=== PATIENT | male | born 2000 | race Caucasian/White ===

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

== ENCOUNTER 2022-06-16 13:15 | Emergency (ER) | payer BC, MEDICAID ==
[~2022-06-16] VITALS: Ht 180.3 cm; Wt 112.0 kg
[2022-06-16] MEDS ORDERED: NAPR220C14 PO (13:43)
[2022-06-16] MEDS ORDERED: ACET32TAB PO (13:43)
[2022-06-16] MEDS ORDERED: LIDO2SO SSP (15:56)
[2022-06-16] MEDS ORDERED: PENI500T PO (15:56)
[2022-06-16] MEDS ORDERED: IBUP-1022 PO (15:56)
[2022-06-16 16:14] VITALS: BP 148/76
== END 2022-06-16 16:15 | disposition home or self-care (01) ==
LOC: M ED 13:15
DX: K02.9 Dental caries, unspecified (principal); K04.6 Periapical abscess with sinus

== ENCOUNTER 2023-06-28 10:02 | Emergency (ER) | payer MEDICAID, OTHER ==
[~2023-06-28] VITALS: Ht 182.9 cm; Wt 113.5 kg
[~2023-06-28 10:02] MED LIST: ACET32TAB PO; IBUP-1022 PO; LIDO15SO9 SSP; NAPR220C14 PO; PENI500T PO
[2023-06-28 11:11] LABS: BASO % 0.7 % (0.0-1.0); EOS # 0.1 10^3/uL (0.0-0.5); EOS % 1.9 % (0.0-3.0); HEMATOCRIT 41.9 % (42.0-52.0); HEMOGLOBIN 14.5 g/dl (13.5-17.5); LYMPH # 1.9 10^3/uL (1.5-5.0); MEAN CORPUSCULAR HEMOGLOBIN 30.6 pg (27.0-33.0); MEAN CORPUSCULAR HGB CONC 34.6 g/dl (32.0-36.5); MEAN CORPUSCULAR VOLUME 88.4 fl (80.0-96.0); MONO # 0.4 10^3/uL (0.0-0.8); MONO % 7.3 % (2.0-8.0); NEUTROPHILS # 2.9 10^3/uL (1.5-8.5); NEUTROPHILS % 53.9 % (36.0-66.0); PLATELET COUNT, AUTOMATED 168 10^3/uL (150-450); RED BLOOD COUNT 4.74 10^6/uL (4.30-6.10); WHITE BLOOD COUNT 5.4 10^3/uL (4.0-10.0)
[2023-06-28 11:42] LABS: LIPASE 48 U/L (12-53)
[2023-06-28 11:45] LABS: ALBUMIN 4.2 G/DL (3.2-5.2); ALKALINE PHOSPHATASE 78 U/L (46-116); ALT/SGPT 192 U/L (7.0-40); AST/SGOT 104 U/L (<34); BILIRUBIN,DIRECT 0.2 MG/DL (<0.4); BILIRUBIN,TOTAL 0.3 MG/DL (0.3-1.2); BLOOD UREA NITROGEN 10 MG/DL (9-23); CALCIUM LEVEL 9.3 MG/DL (8.5-10.1); CARBON DIOXIDE LEVEL 29 MMOL/L (20-31); CHLORIDE LEVEL 110 MMOL/L (98-107); GLUCOSE, FASTING 93 MG/DL (60-100); POTASSIUM SERUM 3.7 MMOL/L (3.5-5.1); SODIUM LEVEL 143 MMOL/L (136-145); TOTAL PROTEIN 7.1 G/DL (5.7-8.2)
[2023-06-28] MEDS ORDERED: ISOVUE-370 76% 100ML VIAL As Ordered ONE (14:28)
[2023-06-28 15:00] VITALS: BP 144/81; TEMP 98.1; O2SAT 99
== END 2023-06-28 16:00 | disposition home or self-care (01) ==
LOC: M ED 11:51
DX: I88.0 Nonspecific mesenteric lymphadenitis (principal); K82.9 Disease of gallbladder, unspecified; K74.60 Unspecified cirrhosis of liver; F17.290 Nicotine dependence, other tobacco product, uncomplicated; F12.10 Cannabis abuse, uncomplicated; F10.10 Alcohol abuse, uncomplicated; Z79.1 Long term (current) use of non-steroidal anti-inflammatories (NSAID); Z79.899 Other long term (current) drug therapy; Z79.2 Long term (current) use of antibiotics
CPT/HCPCS: 36415; 74177; 80048; 80076; 83690; 85025; 99284; Q9967

== ENCOUNTER 2024-01-08 11:01 | Emergency (ER) | payer BC, OTHER ==
[2024-01-08 13:17] LABS: Trichomonas vaginalis (AMP) NOT DETECTED (NEGATIVE)
[2024-01-08 13:41] LABS: GC DNA AMPLIFICATION NEGATIVE (NEGATIVE)
[2024-01-08 14:53] LABS: BASO % 0.5 % (0.0-1.0); EOS # 0.2 10^3/uL (0.0-0.5); HEMATOCRIT 43.1 % (42.0-52.0); HEMOGLOBIN 14.7 g/dl (13.5-17.5); LYMPH # 2.3 10^3/uL (1.5-5.0); LYMPH % 30.4 % (24.0-44.0); MEAN CORPUSCULAR HEMOGLOBIN 30.6 pg (27.0-33.0); MEAN CORPUSCULAR HGB CONC 34.1 g/dl (32.0-36.5); MEAN CORPUSCULAR VOLUME 89.6 fl (80.0-96.0); MONO # 0.4 10^3/uL (0.0-0.8); MONO % 5.5 % (2.0-8.0); NEUTROPHILS # 4.7 10^3/uL (1.5-8.5); NEUTROPHILS % 61.6 % (36.0-66.0); PLATELET COUNT, AUTOMATED 174 10^3/uL (150-450); RED BLOOD COUNT 4.81 10^6/uL (4.30-6.10); WHITE BLOOD COUNT 7.6 10^3/uL (4.0-10.0)
[2024-01-08 15:29] LABS: ALKALINE PHOSPHATASE 59 U/L (46-116); ALT/SGPT 26 U/L (7.0-40); AST/SGOT 14 U/L (<34); BILIRUBIN,TOTAL 0.4 MG/DL (0.3-1.2); BLOOD UREA NITROGEN 9 MG/DL (9-23); CALCIUM LEVEL 9.8 MG/DL (8.5-10.1); CARBON DIOXIDE LEVEL 26 MMOL/L (20-31); CHLORIDE LEVEL 109 MMOL/L (98-107); GLOMERULAR FILTRATION RATE > 60.0 (>60); GLUCOSE, FASTING 96 MG/DL (60-100); POTASSIUM SERUM 4.3 MMOL/L (3.5-5.1); SODIUM LEVEL 142 MMOL/L (136-145); TOTAL PROTEIN 7.4 G/DL (5.7-8.2)
[2024-01-08 15:31] LABS: THYROID STIMULATING HORMONE 1.236 uIU/ML (0.55-4.78)
[2024-01-08 15:32] LABS: FREE T4 1.25 NG/DL (0.89-1.76)
[2024-01-08 15:54] VITALS: BP 141/80; TEMP 98.8; O2SAT 98
== END 2024-01-08 16:05 | disposition home or self-care (01) ==
LOC: M ED 11:01
DX: R35.0 Frequency of micturition (principal); F17.290 Nicotine dependence, other tobacco product, uncomplicated; F12.10 Cannabis abuse, uncomplicated